=== PATIENT | male | born 1965 | race Caucasian/White ===

== ENCOUNTER 2022-05-19 23:31 | Emergency (ER) | payer OTHER ==
[2022-05-19 23:43] VITALS: BP 131/79; PULSE 67; RESP 18; TEMP 97.5; BMI 23.7
[2022-05-20] MEDS ORDERED: IBUPROFEN 600 MG TABLET (FP) PO ONE ×2 (00:44→00:49)
== END 2022-05-20 01:00 | disposition home or self-care (01) ==
LOC: JER 23:31
DX: M54.2 Cervicalgia (principal); V49.40XA Driver injured in collision with unspecified motor vehicles in traffic accident, initial encounter; Y92.9 Unspecified place or not applicable
CPT/HCPCS: 99283-25